=== PATIENT | male | born 1985 | race Two or more races ===

== ENCOUNTER 2019-10-31 19:41 | Emergency (ER) | payer MEDICARE, MEDICAID ==
[~2019-10-31] VITALS: Ht 180.3 cm; Wt 220.5 kg
[2019-10-31 19:44] VITALS: BP 122/89
[2019-10-31] MEDS ORDERED: KETOROLAC 30 MG/1 ML ONE (20:29)
[2019-10-31] MEDS ORDERED: KETOROLAC 30 MG/1 ML IM ONE (20:30)
== END 2019-10-31 21:01 | disposition home or self-care (01) ==
LOC: ED 20:20
DX: K02.9 Dental caries, unspecified (principal); K08.89 Other specified disorders of teeth and supporting structures; R51 Headache
CPT/HCPCS: 96372; 99283; J1885